=== PATIENT | female | born 1980 | race Caucasian/White ===

== ENCOUNTER → 2016-12-02 | Outpatient (REF) | payer OTHER ==
[2016-12-02 14:12] LABS: HCG, SERUM QUANTITATIVE 1314 MIU/ML
[2016-12-02 14:14] LABS: HBsAg Prenatal NEGATIVE (NEGATIVE)
[2016-12-02 14:15] LABS: MEAN CORPUSCULAR HEMOGLOBIN 29.7 pg (27.0-33.0); MEAN CORPUSCULAR HGB CONC 33.2 g/dl (32.0-36.5); MEAN CORPUSCULAR VOLUME 89.5 fl (80.0-96.0); RED CELL DISTRIBUTION WIDTH 12.5 % (11.5-14.5)
[2016-12-02 14:42] LABS: HIV SCREEN CENTAUR NEGATIVE (NEGATIVE)
== END ==
LOC: M LAB REF 12:31
PROVIDERS: ATTEND Obstetrics & Gynecology
DX: O36.80X0 Pregnancy with inconclusive fetal viability, not applicable or unspecified (principal)

== ENCOUNTER → 2017-05-02 | Outpatient (CLI) | payer BC ==
[2017-05-02 12:25] LABS: MEAN CORPUSCULAR HEMOGLOBIN 32.9 pg (27.0-33.0); MEAN CORPUSCULAR HGB CONC 34.8 g/dl (32.0-36.5); MEAN CORPUSCULAR VOLUME 94.3 fl (80.0-96.0); RED CELL DISTRIBUTION WIDTH 13.3 % (11.5-14.5); WHITE BLOOD COUNT 10.6 K/mm3 (4.0-10.0)
== END ==
LOC: M LAB 10:37
PROVIDERS: ATTEND Obstetrics & Gynecology
DX: Z34.82 Encounter for supervision of other normal pregnancy, second trimester (principal)

== ENCOUNTER 2017-08-01 16:15 | Inpatient (IN) | payer BC ==
[~2017-08-01] VITALS: Ht 172.7 cm; Wt 83.0 kg
[2017-08-01 16:38] VITALS: BP 118/69
[2017-08-01 17:46] LABS: MEAN CORPUSCULAR HEMOGLOBIN 31.6 pg (27.0-33.0); MEAN CORPUSCULAR HGB CONC 34.1 g/dl (32.0-36.5); MEAN CORPUSCULAR VOLUME 92.7 fl (80.0-96.0); PLATELET COUNT, AUTOMATED 269 10^3/uL (150-450); RED CELL DISTRIBUTION WIDTH 13.5 % (11.5-14.5); WHITE BLOOD COUNT 16.6 10^3/uL (4.0-10.0)
[2017-08-01 18:09] VITALS: BP 118/66
[2017-08-01 18:15] LABS: ALT/SGPT 36 U/L (12-78); AST/SGOT 23 U/L (7-37); BILIRUBIN,TOTAL 0.4 MG/DL (0.2-1.0); CREATININE FOR GFR 0.66 MG/DL (0.55-1.02); GLOMERULAR FILTRATION RATE > 60.0 (>60)
--- NOTE | 2017-08-01 19:13 | HPEPDOC ---
Obstetrical History & Physical General Date of Admission Aug 01, 2017 at 16:15 Primary Care Physician: ALEENA ANTON CNM History of Present Illness Patient is a 36-year-old female who is a at 39.5 weeks gestation with an KASSANDRA of 08/03/17 based off of her LMP and consistent with her 1st trimester ultrasound. Patient initiated care in her 1st trimester and her has been uncomplicated. She is advanced maternal age. She presented to L&D in active labor. Denies leaking of fluid or vaginal bleeding. Reports active movement and contractions. Chief Complaint: Contractions, term, Active Labor Information Provided By: Patient Age: 3 : 2 Term: 2 Pre-term: 0 Abortions: 0 Livin Care Care: Good Care Dating Final EDC: Aug 03, 2017 Final EDC by: LMP LMP: Oct 27, 2016 EGA at Admission: 39.5 Antepartum Course Diagnos(e)s AMA, succenturate lobe Height (inches): 68 Pre- weight (lbs.): 146 Admission Weight (lbs.): 182 Change in Weight (lbs.): 36 Past Medical History Past Obstetrical History #1: Past Obstetrical History: Multigravida Gestation: 38 Type of Delivery: Spontaneous Vaginal Del. (January 2010) Sex of : Female (weighting 7 lbs 9 oz.) Complications: No Past Obstetrical History #2: Gestation: 39 Type of Delivery: Spontaneous Vaginal Del. (february 2012) Sex of : Male (8 lbs 4 oz) Complications: No [employer] History: No pertinent history Past Medical History Medical History HSV I Surgical History: Tonsilectomy Family History Significant Family History: Hyperlipidemia Social History Marital Status: Family situation: Spouse/partner home Psychosocial History: No pertinent psych hx * Smoker: non-smoker Alcohol: Denies Drugs: denies Abuse Violence Screening Have you been hit/kicked/slapp: No Have you been sexually assault: No Imunizations Tdap status: current Influenza Status: current Allergies Coded Allergies: No Known Allergies (Verified Allergy, Unknown, 01/29/10) Physical Examination Physical Examination GENERAL: Alert and oriented times three. BREAST: . ABDOMEN: Gravid and non-tender to touch. FETUS: Is vertex (VTX) by sterile vaginal examination (SVE), fetus is vertex ( VTX) by Ernie. HEART RATE: Regular rate and rhythm. LUNGS: Clear to auscultation (CTA). EXTREMITIES: No edema. No clonus. Deep tendon reflexes (DTRs) + . Laboratory Data 24H LABS Laboratory Tests 2 08/01/17 16:55: Serology Scanned Report Hepatitis B Testing 08/01/17 17:31: Nucleated Red Blood Cells % (auto) 0.0 CBC/BMP Laboratory Tests 08/01/17 17:31 Red Blood Count 3.42 L, Mean Corpuscular Volume 92.7, Mean Corpuscular Hemoglobin 31.6, Mean Corpuscular Hemoglobin Concent 34.1, Red Cell Distribution Width 13.5 Pertinent Laboratoy Data Blood Type: O- RBC Antibody Screen: Negative HIV: Negative Hepatitis B: Negative Hepatitis C: Negative Rapid Plasma Reagin: Nonreactive Rubella: Immune Chlamydia/Gonorrhea: Negative Group B Streptococcus: Negative Quad Screen Test: Negative Glucose Tolerance Test: 75 Vaginal Examination Dilation: 5 cm Effacement: 80+% Station: -1 Cervical Consistency: Soft Cervical Position: Middle Presentation: Cephalic presentation Position: Vertex (occiput) Assessment Heart Rate (FHR): 125 Variability: Moderate Accelerations: Positive Decelerations: None Tocometer Contractions: Yes Frequency: other (3 to 7 minutes) Assessment/Plan Assessment IUP at 39.5 weeks gestation GBS negative Category I FHR tracing active labor Plan Admit to L&D. Diet: clear liquid diet. OOB ad katrina. Group B Streptococcus (GBS) negative. Labs and intravenous (IV) per unit protocol. LR bolus per order then at 125 cc/hr. May saline lock patient if she desires to get OOB. Anticipate cervical change and normal spontaneous delivery. ALEENA ANTON CNM Aug 01, 2017 19:13
[2017-08-01 19:14] VITALS: BP 117/67
[2017-08-01] MEDS ORDERED: LR 1,000 ML IV SCH (19:24)
[2017-08-01] MEDS ORDERED: OXYTOCIN DRIP 30 UNITS in APPROPRIATE DILUENT 1 EA IV SCH ×2 (19:30→22:57)
[2017-08-01 20:40] VITALS: BP 124/59
[2017-08-01] MEDS ORDERED: IBUPROFEN 800 MG TAB PO PRN (23:00)
[2017-08-01] MEDS ORDERED: ACETAMINOPHEN 500 MG TAB PO PRN (23:00)
[2017-08-01] MEDS ORDERED: RHOGAM 300 MCG (1500 IU) INJ (J2790) IM SCH (23:00)
[2017-08-01] MEDS ORDERED: LIDOCAINE 1% MDV INJ 50 ML VIAL INFIL ONE (23:00)
[2017-08-01] MEDS ORDERED: DIBUCAINE 1% OINTMENT 30GM TOP PRN (23:00)
[2017-08-01] MEDS ORDERED: METHYLERGONOVINE MALEATE 0.2 MG TAB PO PRN (23:00)
[2017-08-01] MEDS ORDERED: MEASLES,MUMPS,RUBELLA VACCINE INJ (MMR-II) (90707) SC SCH (23:00)
[2017-08-01] MEDS ORDERED: DOCUSATE SODIUM 100 MG CAP PO PRN (23:00)
--- NOTE | 2017-08-01 23:31 | DNPDOC ---
[facility] Delivery Note Delivery Note DATE OF DELIVERY: 08/01/17 at 2227 PROCEDURE: Spontaneous vaginal delivery/ section. PROVIDER: Aleena Tavera CNM, DONNA ANESTHESIA: none. ESTIMATED BLOOD LOSS: 350 mL. FINDINGS: 7 pounds 7 ounces, 3360 grams, female , Score 9/9, advanced maternal age. DELIVERY SUMMARY: Patient is a 36-year-old female who is now a who presented to L&D in active labor. She progressed to fully dilated at 2222 and pushed to a living female in the OA position with restitution to ROT at 2227. The anterior shoulder delivered with ease and the corpus immediately followed. The baby was placed on the maternal abdomen active and crying. The cord was clamped x2 after 2 minutes and cut by the FOB. A 3-vessel cord was noted. The placenta delivered intact and spontaneously at 2235. Uterine hemostasis achieved via rapid infusion of IV Pitocin and fundal massage. The perineum and vagina were inspected and found to have a 1st degree perineal laceration that was repaired with a 3.0 vicryl rapid after 1% lidocaine as used. Mom well. Mom naming daughter "Kathryn." Both mom and baby are in stable condition. ALEENA TAVERA CNM Aug 01, 2017 23:31
[2017-08-02 00:14] VITALS: BP 118/69
[2017-08-02 06:36] VITALS: BP 106/57
[2017-08-02] MEDS: PRENATAL VITAMINS CHEWABLE TABLET PO SCH (07:35)
[2017-08-02 18:29] VITALS: BP 104/57
[2017-08-03 05:59] VITALS: BP 107/55
[2017-08-03] MEDS: PRENATAL VITAMINS CHEWABLE TABLET PO SCH (09:07)
[2017-08-03] MEDS ORDERED: IBUP-1114 PO (09:24)
[2017-08-03] MEDS ORDERED: PRENTAB9 PO (09:24)
[2017-08-03] MEDS ORDERED: ACET50TA PO (09:24)
== END 2017-08-03 11:20 | disposition home or self-care (01) | DRG 560 ==
LOC: M LDI 16:15 → M OBS 08-02 00:06
PROVIDERS: ADMIT Advanced Practice Midwife; ATTEND Advanced Practice Midwife
PROC: 10E0XZZ Delivery of Products of Conception, External Approach (ICD-10-PCS; principal; 2017-08-01)
PROC: 0HQ9XZZ Repair Perineum Skin, External Approach (ICD-10-PCS; 2017-08-01)
PROC: 10907ZC Drainage of Amniotic Fluid, Therapeutic from Products of Conception, Via Natural or Artificial Opening (ICD-10-PCS; 2017-08-01)
DX: O70.0 First degree perineal laceration during delivery (principal); Z3A.39 39 weeks gestation of pregnancy; Z37.0 Single live birth

== ENCOUNTER → 2017-10-19 | Outpatient (REF) | payer BC ==
[2017-10-19 13:29] LABS: CHOLESTEROL LEVEL 227 MG/DL (<200); HDL CHOLESTEROL 39 MG/DL (>40); LDL CHOLESTEROL 163.4 MG/DL (<100); NON-HDL-C 188 MG/DL; TRIGLYCERIDES LEVEL 123 MG/DL (<150)
== END ==
LOC: M LAB REF 12:25
DX: Z13.9 Encounter for screening, unspecified (principal)

== ENCOUNTER → 2017-10-26 | Outpatient (CLI) | payer BC | LOC: M CARPUL 09:25 | DX: R01.2 Other cardiac sounds (principal); I35.8 Other nonrheumatic aortic valve disorders | CPT/HCPCS: 93306 ==

== ENCOUNTER → 2019-02-11 | Outpatient (CLI) | payer BC ==
[~2019-02-11] MED LIST: IBUP-1114 PO; MAPA500T2 PO; PRENTAB9 PO
--- NOTE | 2019-02-11 18:04 | REP ---
REASON: Palpable mass over the right inferior rib cage. PRIORS: None. Multiple ultrasonographic images over the region of interest were obtained with some images of the left side for comparison. There is no ultrasonographic evidence of a cystic or solid mass. A negative ultrasound does not obviate further anatomical imaging of a palpable mass is of clinical concern. CT is recommended. Electronically Signed by Dariusz Rogers DO 02/12/2019 11:19 A
== END ==
LOC: M RAD 15:43
PROVIDERS: ATTEND Family Medicine Addiction Medicine
DX: R19.01 Right upper quadrant abdominal swelling, mass and lump (principal)

== ENCOUNTER → 2021-02-05 | Outpatient (CLI) | payer OTHER ==
--- NOTE | 2021-02-05 09:22 | REPMRS ---
Patient History The patient states she had a clinical breast exam in January 2021. Family history of breast cancer at age 60 in paternal aunt, colorectal cancer at age 35 in paternal cousin, prostate cancer at age 55 in paternal uncle, ovarian cancer at age 60 in paternal aunt. Taking hormonal contraceptives for 7 years. Patient states no breast complaints today. Patient has signed MRS History Sheet. Digital Woman Screen Mammo: February 05, 2021 - Exam #: [id number] Bilateral CC and MLO view(s) were taken. Technologist: Kendal Rizzo, Technologist Prior study comparison: April 30, 2015, right breast digital mammo diagnostic unilateral, performed at [facility]. FINDINGS: The breast tissue is heterogeneously dense. This may lower the sensitivity of mammography. Screening. Digital screening (2D) mammography was performed bilaterally in the CC and MLO projections. Additionally, breast tomosynthesis (3D mammography) was performed bilaterally in the CC and MLO projections. Todays exam was compared to the prior exams.There are no prior DBT images for comparison. There is no prior left mammpgram. By history, the patient has no complaints of a palpable breast abnormality or other significant breast complaints. The breasts are unchanged in size and shape. Once again, dense heterogenous fibroglandular elements are seen to such a degree that the sensitivity of the mammogram in detecting cancer is decreased.There are no lois-soft tissue densities or spiculated masses. There is no internal architectural distortion. There are no suspicious lois-calcific clusters. Skin thickening or nipple retraction is not present. IMPRESSION: BI-RADS Category 2- Benign Findings. There is no evidence of malignant alteration of the breasts. Followup examination recommended in one year. The Volpara volumetric breast density category is C, the breasts are heterogenously dense which may obscure small masses. This mammogram was read with the assistance of TopiVert,an FDA approved computer aided detection system for mammography. The lifetime Tyrer-Cuzick score is 18.6 % Negative x-ray reports should not delay surgical consultation if a dominant or clinically suspicious mass is present. Not all breast cancers can be identified by mammography. Therefore, we recommend that you continue to perform regular breast self-examination and physical examination and then promptly contact your physician of any concerns or changes. Adenosis and dense breasts may obscure an underlying neoplasm. Assessment: BI-RADS/ACR category 2 mammogram. Benign Findings. Recommendation Routine screening mammogram of both breasts in 1 year. Electronically Signed By: Dariusz Rogers DO 02/05/21 0924
== END ==
LOC: M WHC 08:26
PROVIDERS: ATTEND Obstetrics & Gynecology
DX: Z12.31 Encounter for screening mammogram for malignant neoplasm of breast (principal); Z80.3 Family history of malignant neoplasm of breast; Z80.42 Family history of malignant neoplasm of prostate; Z80.41 Family history of malignant neoplasm of ovary

== ENCOUNTER → 2022-05-13 | Outpatient (CLI) | payer OTHER | LOC: M WHC 14:37 | PROVIDERS: ATTEND Obstetrics & Gynecology | DX: Z12.31 Encounter for screening mammogram for malignant neoplasm of breast (principal) ==

== ENCOUNTER → 2023-01-20 | Outpatient (REF) | payer OTHER ==
[2023-01-20 17:59] LABS: BASO % 0.4 % (0.0-1.0); EOS # 0.1 10^3/uL (0.0-0.5); HEMATOCRIT 41.1 % (36.0-47.0); HEMOGLOBIN 13.3 g/dl (12.0-15.5); LYMPH # 1.4 10^3/uL (1.5-5.0); LYMPH % 25.6 % (24.0-44.0); MEAN CORPUSCULAR HEMOGLOBIN 29.5 pg (27.0-33.0); MEAN CORPUSCULAR HGB CONC 32.4 g/dl (32.0-36.5); MEAN CORPUSCULAR VOLUME 91.1 fl (80.0-96.0); MONO # 0.3 10^3/uL (0.0-0.8); MONO % 4.8 % (2.0-8.0); NEUTROPHILS # 3.6 10^3/uL (1.5-8.5); NEUTROPHILS % 66.8 % (36.0-66.0); PLATELET COUNT, AUTOMATED 212 10^3/uL (150-450); RED BLOOD COUNT 4.51 10^6/uL (4.00-5.40); WHITE BLOOD COUNT 5.4 10^3/uL (4.0-10.0)
[2023-01-20 18:19] LABS: ALBUMIN 3.8 G/DL (3.2-5.2); ALKALINE PHOSPHATASE 65 U/L (46-116); ALT/SGPT 17 U/L (7.0-40); AST/SGOT 17 U/L (<34); BILIRUBIN,TOTAL 0.8 MG/DL (0.3-1.2); BLOOD UREA NITROGEN 15 MG/DL (9-23); CALCIUM LEVEL 8.4 MG/DL (8.5-10.1); CARBON DIOXIDE LEVEL 27 MMOL/L (20-31); CHLORIDE LEVEL 104 MMOL/L (98-107); CHOLESTEROL LEVEL 146 MG/DL (<200); CHOLESTEROL RISK RATIO 5.14 (<5); CREATININE FOR GFR 0.97 MG/DL (0.55-1.30); GLOMERULAR FILTRATION RATE > 60.0 (>58); GLUCOSE, FASTING 77 MG/DL (60-100); HDL CHOLESTEROL 28.4 MG/DL (>40); LDL CHOLESTEROL 88.6 MG/DL (<100); NON-HDL-C 117.6 MG/DL; POTASSIUM SERUM 4.2 MMOL/L (3.5-5.1); SODIUM LEVEL 139 MMOL/L (136-145); TOTAL PROTEIN 6.6 G/DL (5.7-8.2); TRIGLYCERIDES LEVEL 145 MG/DL (<150)
[2023-01-20 18:47] LABS: HIV 1&2 SCREEN NEGATIVE (NEGATIVE)
== END ==
LOC: M LAB REF 16:23
PROVIDERS: ATTEND Physician Assistant
DX: Z11.59 Encounter for screening for other viral diseases (principal); Z11.4 Encounter for screening for human immunodeficiency virus [HIV]; E78.5 Hyperlipidemia, unspecified; Z13.1 Encounter for screening for diabetes mellitus; Z13.0 Encounter for screening for diseases of the blood and blood-forming organs and certain disorders involving the immune mechanism

== ENCOUNTER → 2023-05-15 | Outpatient (CLI) | payer OTHER | LOC: M WHC 14:37 | PROVIDERS: ATTEND Obstetrics & Gynecology | DX: Z12.31 Encounter for screening mammogram for malignant neoplasm of breast (principal) ==

== ENCOUNTER → 2024-05-24 | Outpatient (CLI) | payer OTHER | LOC: M WHC 08:37 | PROVIDERS: ATTEND Obstetrics & Gynecology | DX: Z12.31 Encounter for screening mammogram for malignant neoplasm of breast (principal); R92.333 Mammographic heterogeneous density, bilateral breasts ==

== ENCOUNTER → 2025-05-26 | Outpatient (CLI) | payer OTHER | LOC: M WHC 09:09 | PROVIDERS: ATTEND Obstetrics & Gynecology | DX: Z12.31 Encounter for screening mammogram for malignant neoplasm of breast (principal) ==